=== PATIENT | male | born 1980 | race Caucasian/White ===

== ENCOUNTER 2020-03-05 04:40 | Emergency (ER) | payer BC, MEDICAID ==
[~2020-03-05] VITALS: Ht 182.9 cm; Wt 100.0 kg
[2020-03-05] MEDS ORDERED: IBUPROFEN 600MG TABLET PO ONE (05:30)
[2020-03-05 06:33] VITALS: BP 130/75
== END 2020-03-05 06:53 | disposition home or self-care (01) ==
LOC: ER 05:01
DX: G89.29 Other chronic pain (principal); G62.9 Polyneuropathy, unspecified; M79.10 Myalgia, unspecified site; R53.1 Weakness; M79.605 Pain in left leg; M79.604 Pain in right leg
CPT/HCPCS: 99283